=== PATIENT | female | born 1980 | race Caucasian/White ===

== ENCOUNTER 2022-02-13 19:56 | Emergency (ER) | payer SELFPAY ==
[2022-02-13] MEDS ORDERED: Acetaminophen/HYDROcodone 325-10 MG Tab PO ONE (19:57)
[2022-02-13] MEDS ORDERED: Sodium Chloride 0.9% 1,000 ML IV ONE (20:52)
[2022-02-13] MEDS ORDERED: Ketorolac 30 MG/ML SDV IVPUSH ONE (20:52)
[2022-02-13] MEDS ORDERED: HYDROmorphone 0.5 MG/0.5 ML Syringe IVPUSH ONE ×3 (20:52→23:35)
[2022-02-13] MEDS ORDERED: Ondansetron 4 MG/2 ML SDV IVPUSH ONE (20:53)
[2022-02-13] MEDS ORDERED: Sodium Chloride 0.9% 10 ML Syringe FLUSH PRN (20:53)
[2022-02-13] MEDS ORDERED: Phenazopyridine 95 MG Tab PO ONE (21:25)
[2022-02-13 21:32] LABS: ANION GAP 11.7 mEq/L (7-13)
[2022-02-13] MEDS ORDERED: cefTRIAXone 2 GM in Sodium Chloride 0.9% 100 ML IV ONE (23:37)
[2022-02-14] MEDS ORDERED: Acetaminophen/HYDROcodone 325-10 MG Tab ONE (00:05)
[2022-02-14 00:27] VITALS: BP 120/77; PULSE 76
== END 2022-02-14 00:28 | disposition home or self-care (01) ==
LOC: DL.ED 19:56
DX: N30.90 Cystitis, unspecified without hematuria (principal); N12 Tubulo-interstitial nephritis, not specified as acute or chronic; F17.210 Nicotine dependence, cigarettes, uncomplicated; Z91.018 Allergy to other foods; Z86.16 Personal history of COVID-19
CPT/HCPCS: 36415; 74018; 74176; 80053; 81001; 81025; 85025; 87086; 96361; 96365; 96375; 96376; 99284; 99284-25; A9270-GY; J0696; J1170; J2405; J3490; J7030